=== PATIENT | male | born 1950 | race Caucasian/White ===

== ENCOUNTER 2018-06-04 08:30 | Emergency (ER) | payer OTHER | END 2018-06-04 09:21 | disposition home or self-care (01) | LOC: EDH 08:30 | DX: S61.302A Unspecified open wound of right middle finger with damage to nail, initial encounter (principal); S60.131A Contusion of right middle finger with damage to nail, initial encounter; Z98.890 Other specified postprocedural states; W23.0XXA Caught, crushed, jammed, or pinched between moving objects, initial encounter; Y93.89 Activity, other specified; Y92.098 Other place in other non-institutional residence as the place of occurrence of the external cause; Y99.8 Other external cause status | CPT/HCPCS: 73140 ==

== ENCOUNTER 2023-04-05 09:01 | Observation (INO) | payer MEDICARE ==
[~2023-04-05] VITALS: Ht 172.7 cm; Wt 55.2 kg
[2023-04-05] MEDS ORDERED: NITROGLYCERIN 0.4 MG SL TAB SL PRN ×3 (09:30→13:30)
[2023-04-05] MEDS ORDERED: ASPIRIN 325MG TAB PO ONE ×2 (09:30)
[2023-04-05 09:38] LABS: BASOPHILS # (AUTO) 0.03 K/uL (0.00-0.20); BASOPHILS % (AUTO) 0.4 % (0.0-5.0); EOSINOPHILS # (AUTO) 0.11 K/uL (0.00-0.70); EOSINOPHILS % (AUTO) 1.6 % (0.0-8.0); IMMATURE GRANULOCYTE ABSOLUTE 0.01 K/uL (0-1); LYMPHOCYTES # (AUTO) 2.4 K/uL (1.0-4.8); LYMPHOCYTES % (AUTO) 34.6 % (21.0-51.0); MEAN CORPUSCULAR HEMOGLOBIN 31.8 pg (27.0-33.0); MEAN CORPUSCULAR VOLUME 90.7 fL (79-99); MONOCYTES # (AUTO) 0.4 K/uL (0.1-1.0); MONOCYTES % (AUTO) 5.6 % (3.0-13.0); NEUTROPHILS # (AUTO) 3.9 K/uL (1.8-7.7); NEUTROPHILS % (AUTO) 57.7 % (40.0-77.0); PLATELET COUNT (AUTO) 213 K/uL (130-400); RED BLOOD CELL COUNT(AUTO) 5.29 MIL/uL (4.50-6.20); RED CELL DISTRIBUTION WIDTH 11.3 % (11.0-15.5); WHITE BLOOD COUNT (AUTO) 6.8 K/uL (4.8-10.8)
[2023-04-05 10:20] LABS: ALBUMIN 4.5 g/dL (3.5-5.0); BILIRUBIN,TOTAL 0.6 mg/dL (0.2-1.0); CREATININE 0.9 mg/dL (0.5-1.5); POTASSIUM 3.8 mmol/L (3.5-5.1); TOTAL PROTEIN, SERUM 8.1 g/dL (6.0-8.3)
[2023-04-05 12:07] LABS: APPEARANCE,URINE CLEAR (CLEAR); BILIRUBIN,URINE NEGATIVE (NEGATIVE); COLOR,URINE COLORLESS (YELLOW); GLUCOSE, URINE (UA) NEGATIVE (NEGATIVE); KETONES,URINE NEGATIVE (NEGATIVE); LEUKOCYTE ESTERASE ,URINE NEGATIVE Leu/uL (NEGATIVE); NITRATE,URINE NEGATIVE (NEGATIVE); OCCULT BLOOD,URINE NEGATIVE (NEGATIVE); PROTEIN,URINE NEGATIVE (NEGATIVE); UROBILINOGEN,URINE 0.2 mg/dL (0.2-1.0)
[2023-04-05 12:15] LABS: ADD UA MICROSCOPIC NO
[2023-04-05] MEDS ORDERED: HYDROXYZINE 25 MG TABLET PO ONE (13:00)
[2023-04-05] MEDS ORDERED: DiphenhydrAMINE HCL 50 MG/ML VIAL IV PRN (13:30)
[2023-04-05] MEDS ORDERED: LACTULOSE 20 GM/30 ML UDCUP PO PRN (13:30)
[2023-04-05] MEDS ORDERED: KCL 20 MEQ ERTAB PO PRN (13:30)
[2023-04-05] MEDS ORDERED: ACETAMINOPHEN 325 MG TAB PO PRN ×2 (13:30)
[2023-04-05] MEDS ORDERED: GUAIFENESIN SUGAR-FREE 100 MG/5 ML UDCUP PO PRN (13:30)
[2023-04-05] MEDS ORDERED: GUAIFENESIN-DM 200/20 MG 10 ML PO PRN (13:30)
[2023-04-05] MEDS ORDERED: DIPHENHYDRAMINE HCL 25 MG CAPSULE PO PRN (13:30)
[2023-04-05] MEDS ORDERED: POLYETHYLENE GLYCOL 3350 17 GM POWD.PACK PO PRN (13:30)
[2023-04-05] MEDS ORDERED: DOCUSATE SODIUM 100 MG CAP PO PRN (13:30)
[2023-04-05] MEDS ORDERED: POTASSIUM CHLORIDE 10MEQ/100ML 100 ML IV PRN (13:30)
[2023-04-05] MEDS ORDERED: POTASSIUM CHLORIDE 10% ELIXIR 20 MEQ/15 ML UDCUP PO PRN (13:30)
[2023-04-05] MEDS ORDERED: HYDRALAZINE 25MG TABLET PO PRN (13:30)
[2023-04-05] MEDS ORDERED: ONDANSETRON 4MG INJ IV PRN (13:30)
[2023-04-05] MEDS ORDERED: LOPERAMIDE HCL 2 MG CAP PO PRN (13:30)
[2023-04-05] MEDS ORDERED: MAGNESIUM 2GM PREMIX 50ML 50 ML IV PRN (13:30)
[2023-04-05] MEDS ORDERED: BENZOCAINE/MENTH/CETYLPYRD CL 1 EACH LOZENGE MM PRN (13:30)
[2023-04-05] MEDS ORDERED: POTASSIUM CHLORIDE 20MEQ/100ML 100 ML IV PRN (13:30)
[2023-04-05] MEDS ORDERED: ARTIFICAL TEARS SOL 15 ML OP PRN (13:30)
[2023-04-05] MEDS ORDERED: PROPRANOLOL HCL 20 MG TAB PO SCH (15:00)
[2023-04-05] MEDS ORDERED: ALPRAZOLAM 0.5 MG TABLET PO PRN (15:00)
[2023-04-05] MEDS: INSULIN HUMULIN R 100 UNIT/ML 3ML SQ SCH ×2 (16:30→20:21)
[2023-04-05] MEDS: AMLODIPINE 5 MG TAB PO SCH (16:47)
[2023-04-05] MEDS: ZOLPIDEM TARTRATE 5 MG TAB PO PRN ×2 (20:20→21:56)
[2023-04-05] MEDS: ATORVASTATIN 40 MG TABLET PO SCH (20:20)
[2023-04-05] MEDS: FAMOTIDINE 20MG TAB PO SCH (20:20)
[2023-04-05] MEDS: LISINOPRIL 10 MG TABLET PO SCH (20:27)
[2023-04-05 21:10] VITALS: BP 129/69; PULSE 73; RESP 18
[2023-04-05 21:30] VITALS: O2SAT 97
[2023-04-05] MEDS ORDERED: AMLO-257 PO (22:03)
[2023-04-05] MEDS ORDERED: PROP10TA10 PO (22:03)
[2023-04-06] VITALS (8 sets, daily range): BP systolic 102–149; BP diastolic 51–89; PULSE 62–71; RESP 17–18; O2SAT 97
[2023-04-06 04:06] LABS: BASOPHILS # (AUTO) 0.03 K/uL (0.00-0.20); BASOPHILS % (AUTO) 0.6 % (0.0-5.0); EOSINOPHILS # (AUTO) 0.19 K/uL (0.00-0.70); EOSINOPHILS % (AUTO) 3.6 % (0.0-8.0); HEMATOCRIT 38.2 % (42-54); IMMATURE GRANULOCYTE ABSOLUTE 0.02 K/uL (0-1); LYMPHOCYTES # (AUTO) 2.6 K/uL (1.0-4.8); LYMPHOCYTES % (AUTO) 49.2 % (21.0-51.0); MEAN CORPUSCULAR HEMOGLOBIN 31.8 pg (27.0-33.0); MEAN CORPUSCULAR HGB CONC 35.1 g/dL (32.0-36.0); MEAN CORPUSCULAR VOLUME 90.7 fL (79-99); MONOCYTES # (AUTO) 0.4 K/uL (0.1-1.0); MONOCYTES % (AUTO) 8.1 % (3.0-13.0); NEUTROPHILS % (AUTO) 38.1 % (40.0-77.0); PLATELET COUNT (AUTO) 177 K/uL (130-400); RED BLOOD CELL COUNT(AUTO) 4.21 MIL/uL (4.50-6.20); RED CELL DISTRIBUTION WIDTH 11.6 % (11.0-15.5); WHITE BLOOD COUNT (AUTO) 5.3 K/uL (4.8-10.8)
[2023-04-06 04:21] LABS: CREATININE 1.2 mg/dL (0.5-1.5); THYROID STIMULATING HORMONE 4.86 uIU/mL (0.36-3.74)
[2023-04-06] MEDS: INSULIN HUMULIN R 100 UNIT/ML 3ML SQ SCH ×4 (05:10→21:00)
[2023-04-06] MEDS: ENOXAPARIN SODIUM 30 MG/0.3 ML SQ SCH (09:00)
[2023-04-06] MEDS: FAMOTIDINE 20MG TAB PO SCH ×2 (09:50→21:50)
[2023-04-06] MEDS: LISINOPRIL 10 MG TABLET PO SCH (09:50)
[2023-04-06] MEDS: AMLODIPINE 5 MG TAB PO SCH (09:50)
[2023-04-06] MEDS: ASPIRIN 81 MG EC TAB PO SCH (09:50)
[2023-04-06] MEDS: HYDROXYZINE 25 MG TABLET PO PRN (12:18)
[2023-04-06] MEDS ORDERED: METOPROLOL TARTRATE 25 MG TAB PO SCH (15:00)
[2023-04-06] MEDS ORDERED: PAROXETINE HCL 20 MG TABLET PO SCH (15:00)
[2023-04-06] MEDS ORDERED: PHARMACY COMMUNICATION MISC SCH (15:30)
[2023-04-06] MEDS: PAROXETINE HCL 20 MG TABLET PO SCH (17:44)
[2023-04-06] MEDS ORDERED: PROPRANOLOL HCL 20 MG TAB PO SCH (18:00)
[2023-04-06] MEDS: ATORVASTATIN 40 MG TABLET PO SCH (21:49)
[2023-04-06] MEDS: PROPRANOLOL HCL 20 MG TAB PO SCH (21:49)
[2023-04-06] MEDS: BUSPIRONE HCL 5 MG TABLET PO SCH (21:50)
[2023-04-07 03:51] VITALS: BP 157/97; PULSE 73; RESP 18
[2023-04-07] MEDS: INSULIN HUMULIN R 100 UNIT/ML 3ML SQ SCH ×2 (06:04→11:30)
[2023-04-07 07:40] VITALS: O2SAT 97
[2023-04-07] MEDS: ENOXAPARIN SODIUM 30 MG/0.3 ML SQ SCH (07:49)
[2023-04-07 08:00] VITALS: BP 117/71; PULSE 73; RESP 17
[2023-04-07] MEDS: ASPIRIN 81 MG EC TAB PO SCH (08:45)
[2023-04-07] MEDS: BUSPIRONE HCL 5 MG TABLET PO SCH (08:45)
[2023-04-07] MEDS: PROPRANOLOL HCL 20 MG TAB PO SCH (08:45)
[2023-04-07] MEDS: FAMOTIDINE 20MG TAB PO SCH (08:45)
[2023-04-07] MEDS: AMLODIPINE 5 MG TAB PO SCH (08:46)
[2023-04-07] MEDS: PAROXETINE HCL 20 MG TABLET PO SCH (08:46)
[2023-04-07] MEDS ORDERED: AMLODIPINE 5 MG TAB PO SCH (09:00)
[2023-04-07] MEDS ORDERED: LOSARTAN 25 MG TABLET PO SCH (09:00)
[2023-04-07 12:00] VITALS: BP 114/74; PULSE 58; RESP 18
[2023-04-07] MEDS: HYDROXYZINE 25 MG TABLET PO PRN (12:23)
== END 2023-04-07 14:15 | disposition home or self-care (01) ==
LOC: EDH 09:01 → EDHIP 13:08 → 4AH 20:46
PROVIDERS: ADMIT Internal Medicine Pulmonary Disease; ATTEND Internal Medicine Pulmonary Disease
DX: I16.1 Hypertensive emergency (principal); R07.9 Chest pain, unspecified; F41.1 Generalized anxiety disorder; F13.239 Sedative, hypnotic or anxiolytic dependence with withdrawal, unspecified; I10 Essential (primary) hypertension; U09.9 Post COVID-19 condition, unspecified; J12.9 Viral pneumonia, unspecified; I25.119 Atherosclerotic heart disease of native coronary artery with unspecified angina pectoris; F32.A Depression, unspecified; F43.10 Post-traumatic stress disorder, unspecified; F43.22 Adjustment disorder with anxiety; G47.00 Insomnia, unspecified; Z79.899 Other long term (current) drug therapy; Z79.82 Long term (current) use of aspirin
CPT/HCPCS: 96374; 99285; 84484 ×3; 80053; 85025 ×2; 82948 ×8; 81003; 36415 ×2; 71045; 93306; 93356; 93005; 84443; 80048; G0378 ×48; J2405; J1650